=== PATIENT | male | born 1970 | race Caucasian/White ===

== ENCOUNTER 2016-12-25 19:28 | Emergency (ER) | payer OTHER ==
[2016-12-25 19:36] VITALS: TEMP 99.2
[2016-12-25] MEDS ORDERED: DIAZEPAM 5 MG/ML 2 ML SYRINGE IM ONE (20:08)
[2016-12-25] MEDS ORDERED: KETOROLAC 60 MG/2 ML VIAL IM STA (20:08)
[2016-12-25] MEDS ORDERED: PROMETHAZINE INJ 25 MG/ML 1 ML VIAL IM STA (20:09)
--- NOTE | 2016-12-25 20:16 | ED ---
General Adult HPI - General Chief complaint: Neck Pain/Injury Stated complaint: neck pain/migraine Time Seen by Provider: 12/25/16 19:35 Source: patient, RN notes reviewed Mode of arrival: ambulatory Limitations: no limitations - History of Present Illness Initial comments: This is a 46-year-old male presents emergency department stating that yesterday he woke up with some posterior neck pain. Patient states it is progressive go up into his head and rate radiates to the front of his head. Patient states there is no numbness or weakness. Patient states it hurts in the right and left side as well when he turns his head. Patient denies any fever chills. Patient denies any photophobia. Patient states he is nauseated but has not vomited. Patient denies any direct blow or trauma to that area. Patient didn' t take anything at home for this pain. - Related Data Home Medications Medication Instructions Recorded Confirmed Insulin Aspart [NovoLOG] 15 unit SQ AC-TID 09/07/15 12/25/16 Insulin Glargine [Lantus] 60 unit SQ HS 09/07/15 12/25/16 Albuterol Inhaler [Ventolin Hfa 1 - 2 puff INHALATION RT-QID PRN 12/25/16 Inhaler] Albuterol Nebulized [Ventolin 2.5 mg INHALATION RT-QID PRN 12/25/16 12/25/16 Nebulized] Atorvastatin [Lipitor] 80 mg PO HS 12/25/16 12/25/16 Lisinopril [Zestril] 10 mg PO DAILY 12/25/16 12/25/16 metFORMIN HCL [Glucophage] 2,000 mg PO HS 12/25/16 12/25/16 Previous Rx's Medication Instructions Recorded Ibuprofen [Motrin] 600 mg PO Q6HR PRN #20 tab 12/25/16 Orphenadrine [Norflex] 100 mg PO Q12H #20 tablet.er 12/25/16 Allergies Allergy/AdvReac Type Severity Reaction Status Date / Time sumatriptan [From Imitrex] Allergy Rash/Hives Verified 12/25/16 20:22 sumatriptan succinate Allergy Rash/Hives Verified 12/25/16 20:22 [From Imitrex] tramadol AdvReac Itching Verified 12/25/16 20:22 Review of Systems ROS Statement: Those systems with pertinent positive or pertinent negative responses have been documented in the HPI. ROS Other: All systems not noted in ROS Statement are negative. Past Medical History Past Medical History: Asthma, Hyperlipidemia, Hypertension History of Any Multi-Drug Resistant Organisms: None Reported Past Surgical History: Hernia Repair Past Psychological History: No Psychological Hx Reported Smoking Status: Never smoker Past Alcohol Use History: Rare Past Drug Use History: None Reported General Exam - General Exam Comments Initial Comments: GENERAL Patient is well-developed and well-nourished. Patient is in mild distress. EYES Patient's pupils are equal and round. Extraocular motion is intact ENT Patient's neck is tender both trapezius muscles and slightly in the midline. SKIN Unremarkable NEURO The patient is alert and oriented 3. Patient has normal sensation and motor all 4 extremities PYSCH Patient has normal interpersonal interactions. MUSCULOSKELETAL Patient is all 4 extremities with full range of motion Limitations: no limitations Course Vital Signs 12/25/16 19:31 Temperature 99.2 F Pulse Rate 84 Respiratory 20 Rate O2 Sat by Pulse 98 Oximetry Medical Decision Making - Medical Decision Making After patient received his medication he felt considerably better and was requesting to go home. Disposition Clinical Impression: Strain of neck muscle Disposition: HOME SELF-CARE Condition: Good Instructions: Cervical Strain (ED) Additional Instructions: Patient should take Motrin when necessary for pain. Patient should take Norflex when necessary for pain as well. Prescriptions: Ibuprofen [Motrin] 600 mg PO Q6HR PRN #20 tab PRN Reason: For pain Orphenadrine [Norflex] 100 mg PO Q12H #20 tablet.er Referrals: Hua Rahman DO [Primary Care Provider] - 1-2 days Time of Disposition: 21:08
[2016-12-25 21:20] VITALS: BP 131/81; PULSE 64; RESP 16
== END 2016-12-25 21:20 | disposition home or self-care (01) ==
LOC: EC 19:28
DX: S16.1XXA Strain of muscle, fascia and tendon at neck level, initial encounter (principal); E78.5 Hyperlipidemia, unspecified; I10 Essential (primary) hypertension; Z79.4 Long term (current) use of insulin; Z79.899 Other long term (current) drug therapy; Z88.6 Allergy status to analgesic agent; Z88.8 Allergy status to other drugs, medicaments and biological substances; X58.XXXA Exposure to other specified factors, initial encounter
CPT/HCPCS: 99283; 96372 ×3; J2550; J3360; J1885

== ENCOUNTER 2017-06-22 18:41 | Emergency (ER) | payer BC, OTHER ==
[2017-06-22 18:51] VITALS: RESP 18
[2017-06-22] MEDS ORDERED: methylPREDNISolone SOD SUCCI 125 MG/2 ML VIAL IM ONE (19:02)
[2017-06-22] MEDS ORDERED: ORPHENADRINE 30 MG/ML 2 ML VIAL IM STA (19:02)
[2017-06-22] MEDS ORDERED: DIAZEPAM 2 MG TAB PO STA (19:02)
[2017-06-22] MEDS ORDERED: HYDROcodone/APAP 10-325MG 1 EACH TAB PO ONE (19:02)
--- NOTE | 2017-06-22 19:05 | ED ---
Back Pain HPI - General Chief Complaint: Back Pain/Injury Stated Complaint: Back pain Time Seen by Provider: 06/22/17 18:52 Source: patient, RN notes reviewed, old records reviewed Limitations: no limitations - History of Present Illness Initial Comments: This patient is a 47-year-old male presents emergency department today chief complaint of lower back pain for the past 2 weeks radiating down his right leg. He reports that he has no saddle anesthesias denies any urinary retention or bowel incontinence. He reports that he has a known history of degenerative disc disease. He's been taking Motrin without any relief. He reports is worse with certain movements. Denies any back pain. Denies any dysuria or hematuria.Patient denies any recent fever, chills, shortness of breath, chest pain, back pain, abdominal pain, nausea vomiting, numbness or tingling, dysuria or hematuria, constipation or diarrhea, headaches or visual changes, or any other current symptoms - Related Data Home Medications Medication Instructions Recorded Confirmed Insulin Aspart [NovoLOG] 16 unit SQ AC-TID 09/07/15 06/22/17 Insulin Glargine [Lantus] 60 unit SQ HS 09/07/15 06/22/17 Albuterol Inhaler [Ventolin Hfa 1 - 2 puff INHALATION RT-QID PRN 12/25/16 Inhaler] Albuterol Nebulized [Ventolin 2.5 mg INHALATION RT-QID PRN 12/25/16 06/22/17 Nebulized] Atorvastatin [Lipitor] 80 mg PO HS 12/25/16 06/22/17 Lisinopril [Zestril] 10 mg PO DAILY 12/25/16 06/22/17 metFORMIN HCL [Glucophage] 2,000 mg PO BID 12/25/16 06/22/17 Previous Rx's Medication Instructions Recorded Cyclobenzaprine [Flexeril] 10 mg PO TID #20 tab 06/22/17 Dexamethasone 0.75 mg PO DAILY #12 tab 06/22/17 HYDROcodone/APAP 5-325MG [[place] 1 tab PO Q6HR PRN #20 tab 06/22/17 5-325] Allergies Allergy/AdvReac Type Severity Reaction Status Date / Time sumatriptan [From Imitrex] Allergy Rash/Hives Verified 02/09/18 19:11 sumatriptan succinate Allergy Rash/Hives Verified 06/22/17 19:11 [From Imitrex] tramadol AdvReac Itching Verified 06/22/17 19:11 Review of Systems ROS Statement: Those systems with pertinent positive or pertinent negative responses have been documented in the HPI. ROS Other: All systems not noted in ROS Statement are negative. Past Medical History Past Medical History: Asthma, Diabetes Mellitus, Hyperlipidemia, Hypertension Additional Past Medical History / Comment(s): migraine headaches, lumbar compression deformities History of Any Multi-Drug Resistant Organisms: None Reported Past Surgical History: Hernia Repair Past Psychological History: No Psychological Hx Reported Smoking Status: Never smoker Past Alcohol Use History: Rare Past Drug Use History: None Reported General Exam - General Exam Comments Initial Comments: This patient is a 47-year-old male. No acute distress. Limitations: no limitations General appearance: alert, in no apparent distress Head exam: Present: atraumatic, normocephalic, normal inspection Eye exam: Present: normal appearance, PERRL, EOMI. Absent: scleral icterus, conjunctival injection, periorbital swelling ENT exam: Present: normal exam, mucous membranes moist Neck exam: Present: normal inspection. Absent: tenderness, meningismus, lymphadenopathy Respiratory exam: Present: normal lung sounds bilaterally. Absent: respiratory distress, wheezes, rales, rhonchi, stridor Cardiovascular Exam: Present: regular rate, normal rhythm, normal heart sounds. Absent: systolic murmur, diastolic murmur, rubs, gallop, clicks GI/Abdominal exam: Present: soft, normal bowel sounds. Absent: distended, tenderness, guarding, rebound, rigid Extremities exam: Present: normal inspection, full ROM, normal capillary refill. Absent: tenderness, pedal edema, joint swelling, calf tenderness Back exam: Present: normal inspection, paraspinal tenderness (Murmur right- sided paraspinal tenderness.), vertebral tenderness (Lumbar vertebral tenderness.) Neurological exam: Present: alert, oriented X3, CN II-XII intact Psychiatric exam: Present: normal affect, normal mood Skin exam: Present: warm, dry, intact, normal color. Absent: rash Course Vital Signs 06/22/17 06/22/17 18:47 20:22 Temperature 99.0 F 98.0 F Pulse Rate 100 76 Respiratory 18 18 Rate Blood Pressure 177/100 149/90 O2 Sat by Pulse 98 96 Oximetry Medical Decision Making - Medical Decision Making This patient is a 47-year-old male presents emergency department today chief complaint of lower back pain for the past 2 weeks radiating down his right leg. He reports that he has no saddle anesthesias denies any urinary retention or bowel incontinence. He reports that he has a known history of degenerative disc disease. He's been taking Motrin without any relief. He reports is worse with certain movements. PAtient has pain with raonge of motion, patient was given [place], norflex and solumedrol. Discussed follow up with PCP and ortho marketing services specialist. Discussed heat, ice and supportive measures. His xray shows degenerative changes in L4-L5. All questions answered and return parameters discussed. - Radiology Data Radiology results: report reviewed Degenerative disc changes showing L4-L5 and L3-L4. Disposition Clinical Impression: Degenerative disc disease, Sciatica Disposition: HOME SELF-CARE Condition: Good Instructions: Sciatica (ED) Additional Instructions: Advised to follow-up with primary care physician. Take the pain medicine and temperature medicine as prescribed. Return to emergency department if any alarming signs or symptoms occur. Prescriptions: Cyclobenzaprine [Flexeril] 10 mg PO TID #20 tab Dexamethasone 0.75 mg PO DAILY #12 tab HYDROcodone/APAP 5-325MG [[place] 5-325] 1 tab PO Q6HR PRN #20 tab PRN Reason: Pain Referrals: Hua Rahman DO [Primary Care Provider] - 1-2 days Time of Disposition: 20:12
--- NOTE | 2017-06-22 19:21 | XR ---
EXAMINATION TYPE: XR lumbar spine 2 or 3V DATE OF EXAM: 06/22/2017 COMPARISON: 09/07/2015 HISTORY: Pain TECHNIQUE: Three-view lumbar spine FINDINGS: There is loss of disc at L4-5. Mild disc height loss is present L3-4. Anterior vertebral kamilla dy spurring is present L1 and L2. There 5 lumbar-type vertebral bodies. Pedicles are intact. Findings appear stable. IMPRESSION: 1. Degenerative disc change L4-5 and L3-4.
[2017-06-22 20:23] VITALS: BP 149/90; PULSE 76; TEMP 98
== END 2017-06-22 20:23 | disposition home or self-care (01) ==
LOC: EC 18:41
DX: M54.30 Sciatica, unspecified side (principal); M51.36 Other intervertebral disc degeneration, lumbar region; E11.9 Type 2 diabetes mellitus without complications; E78.5 Hyperlipidemia, unspecified; I10 Essential (primary) hypertension; Z79.4 Long term (current) use of insulin; Z79.899 Other long term (current) drug therapy
CPT/HCPCS: 72100; 99284; 96372 ×2; J2360; J2930

== ENCOUNTER 2018-01-04 20:19 | Emergency (ER) | payer BC, OTHER ==
[2018-01-04 20:23] VITALS: RESP 18
[2018-01-04] MEDS ORDERED: HYDROcodone/APAP 5-325MG 1 EACH TAB PO STA (21:36)
[2018-01-04 21:51] LABS: Basophils # (A) 0.1 k/uL (0-0.2); Basophils % (A) 1 %; Eosinophils # (A) 0.2 k/uL (0-0.7); Eosinophils % (A) 2 %; HCT 47.6 % (39.0-53.0); HGB 15.5 gm/dL (13.0-17.5); Lymphocytes # (A) 2.9 k/uL (1.0-4.8); Lymphocytes % (A) 26 %; MCH 29.3 pg (25.0-35.0); MCHC 32.6 g/dL (31.0-37.0); MCV 89.8 fL (80.0-100.0); Mean Platelet Volume 6.9; Monocytes # (A) 0.7 k/uL (0-1.0); Monocytes % (A) 6 %; Neutrophils % (A) 63 %; Platelet Count 264 k/uL (150-450); RDW 12.9 % (11.5-15.5); WBC 11.1 k/uL (3.8-10.6)
--- NOTE | 2018-01-04 22:08 | ED ---
General Adult HPI - General Chief complaint: Abdominal Pain Stated complaint: groin & abdominal pain Time Seen by Provider: 01/04/18 21:12 Source: patient Mode of arrival: ambulatory Limitations: no limitations - History of Present Illness Initial comments: Patient is a 47-year-old male who presents to the emergency department today for evaluation of right groin pain. Patient reports that on Sunday or Sunday of this week he noticed a tearing sensation in his right groin which reminded him of when he developed a hernia and his left groin. He can't recall exactly what he was doing. He denies any heavy lifting or moving. He believes he was just walking around his kitchen when this happened. He reports that since that time he has had a constant dull ache in his right groin which is worse with movement or palpation. Patient reports he's been able to eat and drink his normal diet. He's had no change in bowel or bladder habits. He had a bowel movement yesterday which was normal in color caliber and consistency. He denies any fevers chills, nausea or vomiting, chest pain, palpitations, numbness tingling or rashes in the extremities. He reports these otherwise in his usual state of health but distressed by the pain in his groin. Patient reports that in 2000 he did have a left inguinal hernia which was repaired surgically at a hospital in [place]. 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 However he has not been working this week. - Related Data Home Medications Medication Instructions Recorded Confirmed Insulin Aspart [NovoLOG] 17 unit SQ AC-TID 09/07/15 01/04/18 Insulin Glargine [Lantus] 70 unit SQ HS 09/07/15 01/04/18 Albuterol Inhaler [Ventolin Hfa 1 - 2 puff INHALATION RT-QID PRN 12/25/16 Inhaler] Albuterol Nebulized [Ventolin 2.5 mg INHALATION RT-QID PRN 12/25/16 01/04/18 Nebulized] Atorvastatin [Lipitor] 80 mg PO HS 12/25/16 01/04/18 Lisinopril [Zestril] 10 mg PO DAILY 12/25/16 01/04/18 metFORMIN HCL [Glucophage] 2,000 mg PO QAM 12/25/16 01/04/18 Naproxen 500 mg PO BID 01/04/18 01/04/18 Previous Rx's Medication Instructions Recorded HYDROcodone/APAP 5-325MG [[place] 5] 1 each PO Q4HR PRN #10 tab 01/04/18 Allergies Allergy/AdvReac Type Severity Reaction Status Date / Time sumatriptan [From Imitrex] Allergy Rash/Hives Verified 01/04/18 22:50 sumatriptan succinate Allergy Rash/Hives Verified 01/04/18 22:50 [From Imitrex] tramadol AdvReac Itching Verified 01/04/18 22:50 Review of Systems ROS Statement: Those systems with pertinent positive or pertinent negative responses have been documented in the HPI. ROS Other: All systems not noted in ROS Statement are negative. Past Medical History Past Medical History: Asthma, Diabetes Mellitus, Hyperlipidemia, Hypertension Additional Past Medical History / Comment(s): migraine headaches, lumbar compression deformities, sciatica History of Any Multi-Drug Resistant Organisms: MRSA Date of last positivie culture/infection: 08/23/17 MDRO Source:: thigh Past Surgical History: Hernia Repair Past Psychological History: No Psychological Hx Reported Smoking Status: Never smoker Past Alcohol Use History: Rare Past Drug Use History: None Reported General Exam Limitations: no limitations General appearance: alert, in no apparent distress Head exam: Present: atraumatic, normocephalic Eye exam: Present: normal appearance, PERRL ENT exam: Present: normal exam, mucous membranes moist Neck exam: Present: full ROM Respiratory exam: Absent: respiratory distress Cardiovascular Exam: Present: regular rate, normal rhythm GI/Abdominal exam: Present: soft, hernia. Absent: distended, pulsatile mass Rectal exam: Present: deferred exam: Present: normal inspection. Absent: testicular tenderness, scrotal swelling Extremities exam: Present: full ROM Back exam: Present: normal inspection Neurological exam: Present: alert, oriented X3, abnormal gait (antalgic gait) Psychiatric exam: Present: normal affect Skin exam: Present: warm, dry Course Vital Signs 01/04/18 01/04/18 01/04/18 20:21 21:59 23:09 Temperature 98.4 F 98.2 F Pulse Rate 104 H 84 86 Respiratory 18 18 18 Rate Blood Pressure 159/79 150/84 155/85 O2 Sat by Pulse 99 96 96 Oximetry 01/04/18 23:57 Temperature 98.6 F Pulse Rate 78 Respiratory 18 Rate Blood Pressure 148/77 O2 Sat by Pulse 96 Oximetry Medical Decision Making - Medical Decision Making Patient was seen and evaluated, history was obtained from the patient Physical exam reveals a small right inguinal hernia which is easily reducible, however considering the patient's significant pain I will obtain a computed tomography scan Labs were unremarkable Computed tomography scan with no evidence of incarcerated or strangulate hernia Labs are reviewed with no significant abnormalities. Is also discussed with the patient, I suspect he has a muscle strain and may have a small inguinal hernia. I will refer him to surgery for outpatient follow -up. All questions pertaining care were answered to the best my ability patient was discharged home in stable condition. - Lab Data Result diagrams: 01/04/18 21:40 01/04/18 21:40 Lab Results 01/04/18 01/04/18 Range/Units 21:40 21:40 WBC 11.1 H (3.8-10.6) k/uL RBC 5.30 (4.30-5.90) m/uL Hgb 15.5 (13.0-17.5) gm/dL Hct 47.6 (39.0-53.0) % MCV 89.8 (80.0-100.0) fL MCH 29.3 (25.0-35.0) pg MCHC 32.6 (31.0-37.0) g/dL RDW 12.9 (11.5-15.5) % Plt Count 264 (150-450) k/uL Neutrophils % 63 % Lymphocytes % 26 % Monocytes % 6 % Eosinophils % 2 % Basophils % 1 % Neutrophils # 7.0 (1.3-7.7) k/uL Lymphocytes # 2.9 (1.0-4.8) k/uL Monocytes # 0.7 (0-1.0) k/uL Eosinophils # 0.2 (0-0.7) k/uL Basophils # 0.1 (0-0.2) k/uL Sodium 134 L (137-145) mmol/L Potassium 4.2 (3.5-5.1) mmol/L Chloride 99 (98-107) mmol/L Carbon Dioxide 24 (22-30) mmol/L Anion Gap 11 mmol/L BUN 16 (9-20) mg/dL Creatinine 0.70 (0.66-1.25) mg/dL Est GFR (CKD-EPI)AfAm >90 (>60 ml/min/1.73 sqM) Est GFR (CKD-EPI)NonAf >90 (>60 ml/min/1.73 sqM) Glucose 330 H (74-99) mg/dL Calcium 9.3 (8.4-10.2) mg/dL Disposition Clinical Impression: Abdominal pain Disposition: HOME SELF-CARE Condition: Good Instructions: Abdominal Pain (ED) Prescriptions: HYDROcodone/APAP 5-325MG [[place] 5] 1 each PO Q4HR PRN #10 tab PRN Reason: Pain Is patient prescribed a controlled substance at d/c from ED?: Yes Referrals: [facility]inic [Primary Care Provider] - 1-2 days Jaylene Bernstein MD [STAFF PHYSICIAN] - 1-2 days Time of Disposition: 23:36
[2018-01-04 22:10] LABS: Anion Gap 11 mmol/L; Blood Urea Nitrogen 16 mg/dL (9-20); Calcium 9.3 mg/dL (8.4-10.2); Carbon Dioxide 24 mmol/L (22-30); Chloride 99 mmol/L (98-107); Glucose 330 mg/dL (74-99); Potassium 4.2 mmol/L (3.5-5.1); Sodium 134 mmol/L (137-145)
--- NOTE | 2018-01-04 23:07 | CT ---
EXAMINATION TYPE: CT abdomen pelvis w con DATE OF EXAM: 01/04/2018 COMPARISON: 07/18/2013 HISTORY: Right groin pain, abd pain CT DLP: 1333.50 mGycm Automated exposure control for dose reduction was used. TECHNIQUE: Helical acquisition of images was performed from the lung bases through the pelvis. CONTRAST: Performed without Oral Contrast and with IV Contrast, patient injected with 100 mL of Isovue 300. FINDINGS: Lung bases are clear. There is no pleural effusion. Heart size is normal. Liver spleen pancreas appea r normal in size and contour. There is some fatty infiltration of the liver. Bile ducts are not dilat ed. Gallbladder appears normal. There is no adrenal mass. There is 4 cm cortical cyst on the anterior left kidney. There is 1 cm michael ical cyst posterior right kidney. There is no retroperitoneal adenopathy. Appendix appears normal. Th ere is no intestinal wall thickening. There are no dilated loops. There is no ascites. There is no si gn of free air. Bladder distends smoothly. Lumbar spine is intact. IMPRESSION: THERE IS FATTY INFILTRATION OF THE LIVER. NORMAL APPENDIX. RENAL CORTICAL CYSTS. NO SIGN OF ACUTE ABD OMEN AND PELVIS. There is overall no adverse significant change compared to old exam.
[2018-01-04] MEDS ORDERED: KETOROLAC 30 MG/ML 1 ML VIAL IVP STA (23:31)
[2018-01-04 23:58] VITALS: BP 148/77; PULSE 78; TEMP 98.6
== END 2018-01-05 00:22 | disposition home or self-care (01) ==
LOC: SUPCPDRO 20:19 → EC 20:19
DX: R10.31 Right lower quadrant pain (principal); J45.909 Unspecified asthma, uncomplicated; E11.9 Type 2 diabetes mellitus without complications; E78.5 Hyperlipidemia, unspecified; I10 Essential (primary) hypertension; Z86.14 Personal history of Methicillin resistant Staphylococcus aureus infection; Z79.4 Long term (current) use of insulin; Z79.1 Long term (current) use of non-steroidal anti-inflammatories (NSAID); Z79.899 Other long term (current) drug therapy; Z88.5 Allergy status to narcotic agent; Z88.8 Allergy status to other drugs, medicaments and biological substances
CPT/HCPCS: 36415; 80048; 85025; 74177; 99284; 96374; J1885; Q9967

== ENCOUNTER → 2018-05-09 | Outpatient (CLI) | payer BC ==
[2018-05-09 12:12] LABS: HCT 47.8 % (39.0-53.0); HGB 15.8 gm/dL (13.0-17.5); MCH 29.9 pg (25.0-35.0); MCHC 33.1 g/dL (31.0-37.0); MCV 90.6 fL (80.0-100.0); Mean Platelet Volume 8.2; Platelet Count 225 k/uL (150-450); RBC 5.28 m/uL (4.30-5.90); RDW 12.8 % (11.5-15.5); WBC 10.5 k/uL (3.8-10.6)
== END | disposition home or self-care (01) ==
LOC: LABPAT 10:55
PROVIDERS: ATTEND Anesthesiology
DX: Z01.812 Encounter for preprocedural laboratory examination (principal); K40.90 Unilateral inguinal hernia, without obstruction or gangrene, not specified as recurrent
CPT/HCPCS: 36415; 85027

== ENCOUNTER → 2018-05-16 | Day surgery (SDC) | payer BC ==
[2018-05-09 08:41] VITALS: BMI 32.5
[~2018-05-16] MED LIST: ACETAMINOPHEN IV (For NPO) 1,000 MG in EMPTY BAG 1 BAG IVPB STA; BUPIVACAIN-EPI 0.25%-1:200,000 30 ML VIAL SQ ONE; DEXAMETHASONE SOD PHOSPHATE 10 MG/ML 1 ML VIAL IV ONE; GLYCOPYRROLATE 0.2 MG/ML 2 ML VIAL ONE; HEPARIN SODIUM,PORCINE 5,000 UNIT/ML 1 ML VIAL SQ ONE; HYDROcodone/APAP 5-325MG 1 EACH TAB PO ONE; IBUPROFEN 200 MG TAB PO ONE; INSULIN ASPART 100 UNIT/ML 1 ML 10 ML VIAL SQ ONE; KETAMINE 10 MG/ML 20 ML VIAL ONE; KETOROLAC 30 MG/ML 1 ML VIAL IVP STA; LACTATED RINGERS 1,000 ML IV SCH; MIDAZOLAM (PF) 2 MG/2 ML VIAL IV PRN; MIDAZOLAM 2 MG/2 ML VIAL ONE; NEOSTIGMINE 1 MG/ML 10 ML VIAL ONE; ONDANSETRON 4 MG/2 ML VIAL IVP ONE; PHENYLEPHRINE-0.9% NACL SYG 1 MG/10 ML SYRINGE ONE; PROPOFOL 10 MG/ML 20 ML VIAL IV ONE; ROCURONIUM BROMIDE 10 MG/ML 10 ML VIAL IV ONE; ROPIVACAINE 5 MG/ML 30 ML VIAL ONE; SUCCINYLCHOLINE CHLORIDE 100 MG/5 ML SYR IV ONE; VANCOMYCIN 1,500 MG in SODIUM CHLORIDE 0.9% 250 ML IVPB ONE; ceFAZolin IN SWFI 2 GM/20 ML SYRINGE IVP ONE; ePHEDrine SULFATE/0.9% NACL/PF 50 MG/5 ML SYRINGE IV ONE; fentaNYL (PF) 50 MCG/ML 2 ML AMP IV PRN; fentaNYL (PF) 50 MCG/ML 2 ML AMP ONE
[2018-05-16 10:31] VITALS: RESP 16
[2018-05-16] MEDS: LIDOCAINE 1% 20 ML VIAL (10MG/ML) FOR IV START INTRADERMA PRN ×2 (10:47→10:48)
[2018-05-16 10:52] LABS: Glucose,Whole Blood 252 mg/dL (75-99)
--- NOTE | 2018-05-16 11:50 | P.GSHP ---
History of Present Illness H&P Date: 05/16/18 CHIEF COMPLAINT: Inguinal hernia, right. HISTORY OF PRESENT ILLNESS: The patient is a 48-year-old male who presents with a history of swelling and pain along the right groin. He's noted increased swelling including pain of the area. Now he presents for repair of his inguinal hernia. PAST MEDICAL HISTORY: Please see list. PAST SURGICAL HISTORY: Please see list. MEDICATIONS: Please see list. ALLERGIES: Please see list. SOCIAL HISTORY: No illicit drug use FAMILY HISTORY: No reports of Crohn disease or ulcerative colitis. REVIEW OF ORGAN SYSTEMS: CONSTITUTIONAL: No reports of fevers or chills. No reports of weight loss despite prior attempts. GI: Denies any blood in stools or constipation. PHYSICAL EXAM: VITAL SIGNS: Stable GENERAL: Well-developed pleasant male in no acute distress. HEENT: No scleral icterus. Extraocular movements grossly intact. Moist buccal mucosa. NECK: Supple without lymphadenopathy. CHEST: Unlabored respirations. Equal bilateral excursions. CARDIOVASCULAR: Regular rate and rhythm. Distal 2+ pulses. ABDOMEN: Soft, nondistended. No peritoneal signs. Palpable defect of the right groin. MUSCULOSKELETAL: No clubbing, cyanosis, or edema. ASSESSMENT: 1. Inguinal hernia, right PLAN: 1. Recommend proceeding with a robotic inguinal repair with mesh with possible bilateral approach. 2. Benefits and risks of surgical intervention was discussed including possibility of open technique. 3. DVT prophylaxis. 4. Antibiotic prophylaxis. Past Medical History Past Medical History: Asthma, Diabetes Mellitus, Hyperlipidemia, Hypertension, Neurologic Disorder Additional Past Medical History / Comment(s): migraine headaches, lumbar compression deformities, sciatica History of Any Multi-Drug Resistant Organisms: MRSA Date of last positivie culture/infection: 08/23/17 MDRO Source:: thigh Past Surgical History: Heart Catheterization, Hernia Repair Past Anesthesia/Blood Transfusion Reactions: No Reported Reaction Smoking Status: Never smoker - Past Family History Father Family Medical History: Deep Vein Thrombosis (DVT) Medications and Allergies Home Medications Medication Instructions Recorded Confirmed Type Insulin Aspart [NovoLOG] 17 unit SQ AC-TID 09/07/15 05/16/18 History Insulin Glargine [Lantus] 70 unit SQ HS 09/07/15 05/16/18 History Albuterol Inhaler [Ventolin Hfa 1 - 2 puff INHALATION RT-QID PRN 12/25/16 History Inhaler] Albuterol Nebulized [Ventolin 2.5 mg INHALATION RT-QID PRN 12/25/16 05/16/18 History Nebulized] Atorvastatin [Lipitor] 80 mg PO HS 12/25/16 05/16/18 History Lisinopril [Zestril] 10 mg PO DAILY 12/25/16 05/16/18 History metFORMIN HCL [Glucophage] 2,000 mg PO QAM 12/25/16 05/16/18 History HYDROcodone/APAP 5-325MG [[place] 5] 1 each PO Q4HR PRN #10 tab 01/04/18 05/16/18 Rx Naproxen 500 mg PO BID 01/04/18 05/16/18 History Allergies Allergy/AdvReac Type Severity Reaction Status Date / Time sumatriptan [From Imitrex] Allergy Rash/Hives Verified 05/16/18 11:11 sumatriptan succinate Allergy Rash/Hives Verified 05/16/18 11:11 [From Imitrex] tramadol AdvReac Itching Verified 05/16/18 11:11 Surgical - Exam Vital Signs Temp Pulse Resp BP Pulse Ox 97.0 F L 72 16 155/81 95 05/16/18 10:30 05/16/18 10:30 05/16/18 10:30 05/16/18 10:30 05/16/18 10:30 Results - Labs Abnormal Lab Results - Last 24 Hours (Table) 05/16/18 Range/Units 10:38 POC Glucose (mg/dL) 252 H (75-99) mg/dL
[2018-05-16 15:30] VITALS: TEMP 97
[2018-05-16 15:46] LABS: Glucose,Whole Blood 344 mg/dL (75-99)
[2018-05-16] MEDS: HYDROmorphone 1 MG/ML 1 ML SYRINGE IVP ONE ×2 (15:51→16:10)
[2018-05-16 16:54] VITALS: BP 102/65
[2018-05-16 17:31] VITALS: PULSE 90
[2018-05-16 17:39] LABS: Glucose,Whole Blood 292 mg/dL (75-99)
--- NOTE | 2018-05-16 18:21 | P.OP ---
Date of Procedure: 05/16/18 Preoperative Diagnosis: Right inguinal hernia, right groin pain, right lower quadrant abdominal pain, previous history of left inguinal hernia repair Postoperative Diagnosis: Right lower quadrant pain, peritoneal adhesions right lower abdomen Procedure(s) Performed: Robotic lysis adhesions Anesthesia: GETA, local Surgeon: Jaylene Bernstein Estimated Blood Loss (ml): 5 Pathology: none sent Condition: stable Disposition: same day Operative Findings: The left side without recurrent hernia No hernias identified along the right groin Adhesions involving left lower quadrant and right lower quadrant consistent with location of pain Abdominal wall block for chronic pain and chronic lower back pain Appendix unremarkable Plan - Discharge Summary New Discharge Prescriptions: New HYDROcodone/APAP 5-325MG [[place] 5-325] 1 tab PO Q4HR PRN 3 Days #18 tab PRN Reason: Pain Ibuprofen [Motrin] 600 mg PO Q8HR PRN #30 tab PRN Reason: Pain No Action Insulin Glargine [Lantus] 70 unit SQ HS Insulin Aspart [NovoLOG] 17 unit SQ AC-TID Albuterol Inhaler [Ventolin Hfa Inhaler] 1 - 2 puff INHALATION RT-QID PRN PRN Reason: Shortness Of Breath metFORMIN HCL [Glucophage] 2,000 mg PO QAM Atorvastatin [Lipitor] 80 mg PO HS Albuterol Nebulized [Ventolin Nebulized] 2.5 mg INHALATION RT-QID PRN PRN Reason: Shortness Of Breath Lisinopril [Zestril] 10 mg PO DAILY Naproxen 500 mg PO BID HYDROcodone/APAP 5-325MG [[place] 5] 1 each PO Q4HR PRN #10 tab PRN Reason: Pain Discharge Medication List Insulin Aspart [NovoLOG] 17 unit SQ AC-TID 09/07/15 [History] Insulin Glargine [Lantus] 70 unit SQ HS 09/07/15 [History] Albuterol Inhaler [Ventolin Hfa Inhaler] 1 - 2 puff INHALATION RT-QID PRN [History] Albuterol Nebulized [Ventolin Nebulized] 2.5 mg INHALATION RT-QID PRN 12/25/16 [ History] Atorvastatin [Lipitor] 80 mg PO HS 12/25/16 [History] Lisinopril [Zestril] 10 mg PO DAILY 12/25/16 [History] metFORMIN HCL [Glucophage] 2,000 mg PO QAM 12/25/16 [History] HYDROcodone/APAP 5-325MG [[place] 5] 1 each PO Q4HR PRN #10 tab 01/04/18 [Rx] Naproxen 500 mg PO BID 01/04/18 [History] HYDROcodone/APAP 5-325MG [[place] 5-325] 1 tab PO Q4HR PRN 3 Days #18 tab [Rx] Ibuprofen [Motrin] 600 mg PO Q8HR PRN #30 tab 05/16/18 [Rx] Follow up Appointment(s)/Referral(s): Jaylene Bernstein MD [STAFF PHYSICIAN] - 05/21/18 Patient Instructions/Handouts: *Surgery [facility] - (Anesthesia) Discharge Instructions Outpatient Surgery, Lysis of Abdominal Adhesions (DC) Activity/Diet/Wound Care/Special Instructions: call office for an appointment time. Discharge Disposition: HOME SELF-CARE
== END | disposition home or self-care (01) ==
LOC: OR 10:06
PROVIDERS: ATTEND Surgery Plastic and Reconstructive Surgery
DX: K66.0 Peritoneal adhesions (postprocedural) (postinfection) (principal); G89.29 Other chronic pain; M54.5 Low back pain; E11.9 Type 2 diabetes mellitus without complications; I10 Essential (primary) hypertension; E78.5 Hyperlipidemia, unspecified; Z82.49 Family history of ischemic heart disease and other diseases of the circulatory system; Z88.5 Allergy status to narcotic agent; Z88.8 Allergy status to other drugs, medicaments and biological substances; Z79.4 Long term (current) use of insulin; Z79.899 Other long term (current) drug therapy
CPT/HCPCS: 64488; 49329; J2250 ×2; J3370; J1644; J1100; J2710; J2405; J3010; J1170; J2795; J0131; J2370; J0330; J2704; J0690

== ENCOUNTER 2018-07-01 13:54 | Emergency (ER) | payer BC, OTHER ==
[2018-07-01] MEDS ORDERED: SODIUM CHLORIDE 0.9% 1,000 ML IV STA (15:00)
[2018-07-01] MEDS ORDERED: ONDANSETRON 4 MG/2 ML VIAL IVP STA (15:00)
--- NOTE | 2018-07-01 15:19 | XR ---
EXAMINATION TYPE: XR KUB DATE OF EXAM: 07/01/2018 COMPARISON: 01/04/2018 HISTORY: Pain TECHNIQUE: One view abdominal series FINDINGS: The osseous structures are intact. The bowel gas pattern is nonspecific. Lung bases are clear. Hype rtrophic change of the acetabulum can be associated with femoral acetabular impingement. Hypertrophic changes of the vertebral column. Retained fecal debris throughout the colon. IMPRESSION: 1. Nonspecific abdomen.
[2018-07-01 15:35] LABS: Basophils # (A) 0.1 k/uL (0-0.2); Basophils % (A) 1 %; Eosinophils # (A) 0.2 k/uL (0-0.7); Eosinophils % (A) 2 %; HCT 45.8 % (39.0-53.0); HGB 15.6 gm/dL (13.0-17.5); Lymphocytes # (A) 2.6 k/uL (1.0-4.8); Lymphocytes % (A) 26 %; MCH 30.6 pg (25.0-35.0); MCHC 34.1 g/dL (31.0-37.0); MCV 89.7 fL (80.0-100.0); Mean Platelet Volume 6.5; Monocytes # (A) 0.7 k/uL (0-1.0); Monocytes % (A) 7 %; Neutrophils # (A) 6.5 k/uL (1.3-7.7); Neutrophils % (A) 63 %; Platelet Count 264 k/uL (150-450); RDW 12.7 % (11.5-15.5); WBC 10.3 k/uL (3.8-10.6)
[2018-07-01 15:44] LABS: ALT 41 U/L (21-72); AST 26 U/L (17-59); Albumin 3.9 g/dL (3.5-5.0); Alkaline Phosphatase 107 U/L (38-126); Anion Gap 10 mmol/L; Blood Urea Nitrogen 21 mg/dL (9-20); Calcium 9.4 mg/dL (8.4-10.2); Carbon Dioxide 23 mmol/L (22-30); Chloride 105 mmol/L (98-107); Glucose 240 mg/dL (74-99); Potassium 4.4 mmol/L (3.5-5.1); Sodium 138 mmol/L (137-145); Total Bilirubin 0.8 mg/dL (0.2-1.3); Total Protein 6.9 g/dL (6.3-8.2)
--- NOTE | 2018-07-01 16:56 | ED ---
General Adult HPI - General Chief complaint: Nausea/Vomiting/Diarrhea Stated complaint: Vomiting Time Seen by Provider: 07/01/18 14:32 Source: patient, RN notes reviewed, old records reviewed Mode of arrival: ambulatory Limitations: no limitations - History of Present Illness Initial comments: 48-year-old male patient past medical history of type 2 diabetes, hypertension, hyperlipidemia presents ED with 2 days of nausea and vomiting. Patient states that last 2 days he has had nausea and shortly after eating has vomited. Patient denies all other complaints. Patient denies abdominal pain, diarrhea, chest pain, shortness of breath. Patient not take anything for these symptoms. Patient has not been previously evaluated for this problem. Systemic: Pt denies fatigue, myalgia, fever/chills, rash. Pt denies weakness, night sweats, weight loss. Neuro: Pt denies headache, visual disturbances, syncope or pre-syncope. HEENT: Pt denies ocular discharge or irritation, otalgia, rhinorrhea, pharyngitis or notable lymphadenopathy. Cardiopulmonary: Pt denies chest pain, SOB, heart palpitations, dyspnea on exertion. Abdominal/GI: Pt denies abdominal pain. : Pt denies dysuria, burning w/ urination, frequency/urgency. Denies new onset urinary or bowel incontinence. MSK: Pt denies myalgia, loss of strength or function in extremities. Neuro: Pt denies new onset weakness, paresthesias. - Related Data Home Medications Medication Instructions Recorded Confirmed INSULIN ASPART (NovoLOG) [NovoLOG] 18 unit SQ AC-TID 09/07/15 07/01/18 Insulin Glargine [Lantus] 70 unit SQ HS 09/07/15 07/01/18 Albuterol Inhaler [Ventolin Hfa 2 puff INHALATION RT-QID PRN 12/25/16 07/01/18 Inhaler] Albuterol Nebulized [Ventolin 2.5 mg INHALATION RT-QID PRN 12/25/16 07/01/18 Nebulized] Lisinopril [Zestril] 10 mg PO DAILY 12/25/16 07/01/18 metFORMIN HCL [Glucophage] 2,000 mg PO QAM 12/25/16 07/01/18 Rosuvastatin Calcium [Crestor] 40 mg PO HS 07/01/18 07/01/18 Previous Rx's Medication Instructions Recorded Ondansetron Odt [Zofran ODT] 4 mg PO Q8HR PRN #20 tab 07/01/18 Allergies Allergy/AdvReac Type Severity Reaction Status Date / Time sumatriptan [From Imitrex] Allergy Rash/Hives Verified 07/01/18 16:16 sumatriptan succinate Allergy Rash/Hives Verified 07/01/18 16:16 [From Imitrex] tramadol AdvReac Itching Verified 07/01/18 16:16 Review of Systems ROS Statement: Those systems with pertinent positive or pertinent negative responses have been documented in the HPI. ROS Other: All systems not noted in ROS Statement are negative. Past Medical History Past Medical History: Asthma, Diabetes Mellitus, Hyperlipidemia, Hypertension, Neurologic Disorder Additional Past Medical History / Comment(s): migraine headaches, lumbar compression deformities, sciatica History of Any Multi-Drug Resistant Organisms: MRSA Date of last positivie culture/infection: 08/23/17 MDRO Source:: thigh Past Surgical History: Heart Catheterization, Hernia Repair Past Anesthesia/Blood Transfusion Reactions: No Reported Reaction Past Psychological History: No Psychological Hx Reported Smoking Status: Never smoker - Past Family History Father Family Medical History: Deep Vein Thrombosis (DVT) General Exam - General Exam Comments Initial Comments: Constitutional: NAD, AOX3, Pt has pleasant affect. HEENT: NC/AT, trachea midline, neck supple, no lymphadenopathy. Posterior pharynx non erythematous, without exudates. External ears appear normal, without discharge. Mucous membranes moist. Eyes PERRLA, EOM intact. There is no scleral icterus. No pallor noted. Cardiopulmonary: RRR, no murmurs, rubs or gallops, no JVD noted. Lungs CTAB in anterior and posterior andre. No peripheral edema. Abdominal exam: Abdomen soft and non-distended. Abdomen non-tender to palpation in all 4 quadrants. Bowel sounds active in LLQ. No hepatosplenomegaly. No ecchymosis Neuro: CN II-XII grossly intact. No nuchal rigidity. MSK: No posterior calf tenderness bilaterally, homans sign negative bilaterally. Posterior tibialis and radial pulse +2 bilaterally. Sensation intact in upper and lower extremities. Full active ROM in upper and lower extremities, 5/5 stregnth. Limitations: no limitations Course Vital Signs 02/18/19 02/18/19 14:00 16:56 Temperature 98 F 97.2 F L Pulse Rate 97 69 Respiratory 18 16 Rate Blood Pressure 156/80 131/81 O2 Sat by Pulse 97 99 Oximetry Medical Decision Making - Medical Decision Making 48-year-old male patient past medical history of type 2 diabetes, hypertension, hyperlipidemia presents ED with 2 days of nausea and vomiting. Patient states that last 2 days he has had nausea and shortly after eating has vomited. Patient denies all other complaints. Patient denies abdominal pain, diarrhea, chest pain, shortness of breath. Patient not take anything for these symptoms. Patient has not been previously evaluated for this problem. Patient will signs stable afebrile. Physical exam did not display acute pathology, abdomen soft and nondistended and nontender palpation. Laboratory investigations revealed noncompressive CBC. CMP revealed hyperglycemia. KUB displayed a nonspecific abdomen. Patient improved with Zofran, IV fluids. Patient to monitor blood sugar at home, will take medications. Patient discharged with Zofran. Patient to follow up with primary care physician one to 2 days for continued evaluation. Patient to return to ED if signs or symptoms worsen anyway, strict return precautions, patient verbalizes understanding. Case discussed in depth with Dr. Ruiz. - Lab Data Result diagrams: 07/01/18 15:17 07/01/18 15:17 Lab Results 07/01/18 07/01/18 Range/Units 15:17 15:17 WBC 10.3 (3.8-10.6) k/uL RBC 5.10 (4.30-5.90) m/uL Hgb 15.6 (13.0-17.5) gm/dL Hct 45.8 (39.0-53.0) % MCV 89.7 (80.0-100.0) fL MCH 30.6 (25.0-35.0) pg MCHC 34.1 (31.0-37.0) g/dL RDW 12.7 (11.5-15.5) % Plt Count 264 (150-450) k/uL Neutrophils % 63 % Lymphocytes % 26 % Monocytes % 7 % Eosinophils % 2 % Basophils % 1 % Neutrophils # 6.5 (1.3-7.7) k/uL Lymphocytes # 2.6 (1.0-4.8) k/uL Monocytes # 0.7 (0-1.0) k/uL Eosinophils # 0.2 (0-0.7) k/uL Basophils # 0.1 (0-0.2) k/uL Sodium 138 (137-145) mmol/L Potassium 4.4 (3.5-5.1) mmol/L Chloride 105 (98-107) mmol/L Carbon Dioxide 23 (22-30) mmol/L Anion Gap 10 mmol/L BUN 21 H (9-20) mg/dL Creatinine 0.63 L (0.66-1.25) mg/dL Est GFR (CKD-EPI)AfAm >90 (>60 ml/min/1.73 sqM) Est GFR (CKD-EPI)NonAf >90 (>60 ml/min/1.73 sqM) Glucose 240 H (74-99) mg/dL Calcium 9.4 (8.4-10.2) mg/dL Total Bilirubin 0.8 (0.2-1.3) mg/dL AST 26 (17-59) U/L ALT 41 (21-72) U/L Alkaline Phosphatase 107 (38-126) U/L Total Protein 6.9 (6.3-8.2) g/dL Albumin 3.9 (3.5-5.0) g/dL Disposition Clinical Impression: Nausea and vomiting Disposition: HOME SELF-CARE Condition: Stable Instructions (If sedation given, give patient instructions): Acute Nausea and Vomiting (ED) Additional Instructions: Patient to adhere to previously discussed treatment plan and will take medication(s) as directed. Patient to follow up with PCP in 1-2 days. Patient to return to ED if symptoms do not improve. Prescriptions: Ondansetron Odt [Zofran ODT] 4 mg PO Q8HR PRN #20 tab PRN Reason: Nausea Is patient prescribed a controlled substance at d/c from ED?: No Referrals: [facility],Clinic [Primary Care Provider] - 1-2 days Time of Disposition: 16:55
[2018-07-01 16:57] VITALS: BP 131/81; PULSE 69; RESP 16; TEMP 97.2
== END 2018-07-01 17:04 | disposition home or self-care (01) ==
LOC: EC 13:54
DX: R11.2 Nausea with vomiting, unspecified (principal); E11.65 Type 2 diabetes mellitus with hyperglycemia; J45.909 Unspecified asthma, uncomplicated; E78.5 Hyperlipidemia, unspecified; I10 Essential (primary) hypertension; Z86.14 Personal history of Methicillin resistant Staphylococcus aureus infection; Z79.4 Long term (current) use of insulin; Z79.899 Other long term (current) drug therapy; Z88.5 Allergy status to narcotic agent; Z88.8 Allergy status to other drugs, medicaments and biological substances; Z95.818 Presence of other cardiac implants and grafts
CPT/HCPCS: 36415; 80053; 85025; 74018; 99284; 96374; 96361 ×2; J2405

== ENCOUNTER 2018-07-05 15:40 | Emergency (ER) | payer BC, OTHER ==
[2018-07-05] MEDS ORDERED: KETOROLAC 60 MG/2 ML VIAL IM STA (16:50)
--- NOTE | 2018-07-05 16:50 | ED ---
General Adult HPI - General Chief complaint: Extremity Problem,Nontraumatic Stated complaint: Lt arm and ear pain Source: family, RN notes reviewed Mode of arrival: ambulatory Limitations: no limitations - History of Present Illness Initial comments: Patient is a 48-year-old male who presents to the emergency department with his fianc with complaint of left shoulder and left ear pain since today. He states that he had earplugs in at work and when he took the earplugs out he had left ear pain. He states that there was no injury or trauma to the shoulder and that it started sometime after getting out of bed. He has not taken anything today for pain relief. Patient denies any recent fever, chills, shortness of breath, chest pain, back pain, abdominal pain, nausea or vomiting, numbness or tingling, headaches or visual changes, or any other complaints. - Related Data Home Medications Medication Instructions Recorded Confirmed INSULIN ASPART (NovoLOG) [NovoLOG] 18 unit SQ AC-TID 09/07/15 07/01/18 Insulin Glargine [Lantus] 70 unit SQ HS 09/07/15 07/01/18 Albuterol Inhaler [Ventolin Hfa 2 puff INHALATION RT-QID PRN 12/25/16 07/01/18 Inhaler] Albuterol Nebulized [Ventolin 2.5 mg INHALATION RT-QID PRN 12/25/16 07/01/18 Nebulized] Lisinopril [Zestril] 10 mg PO DAILY 12/25/16 07/01/18 metFORMIN HCL [Glucophage] 2,000 mg PO QAM 12/25/16 07/01/18 Rosuvastatin Calcium [Crestor] 40 mg PO HS 07/01/18 07/01/18 Previous Rx's Medication Instructions Recorded Ondansetron Odt [Zofran ODT] 4 mg PO Q8HR PRN #20 tab 07/01/18 Ibuprofen [Motrin] 600 mg PO Q6HR PRN #28 day 07/05/18 [id number]-Vm Otic 4 drops LEFT EAR QID 10 Days 07/05/18 [Cortisporin Otic Soln] Allergies Allergy/AdvReac Type Severity Reaction Status Date / Time sumatriptan [From Imitrex] Allergy Rash/Hives Verified 07/05/18 15:54 sumatriptan succinate Allergy Rash/Hives Verified 07/05/18 15:54 [From Imitrex] tramadol AdvReac Itching Verified 07/05/18 15:54 Review of Systems ROS Statement: Those systems with pertinent positive or pertinent negative responses have been documented in the HPI. ROS Other: All systems not noted in ROS Statement are negative. Past Medical History Past Medical History: Asthma, Diabetes Mellitus, Hyperlipidemia, Hypertension, Neurologic Disorder Additional Past Medical History / Comment(s): migraine headaches, lumbar compression deformities, sciatica History of Any Multi-Drug Resistant Organisms: MRSA Date of last positivie culture/infection: 08/23/17 MDRO Source:: thigh Past Surgical History: Heart Catheterization, Hernia Repair Past Anesthesia/Blood Transfusion Reactions: No Reported Reaction Past Psychological History: No Psychological Hx Reported Smoking Status: Never smoker Past Alcohol Use History: None Reported Past Drug Use History: None Reported - Past Family History Father Family Medical History: Deep Vein Thrombosis (DVT) General Exam Limitations: no limitations General appearance: alert, in no apparent distress Head exam: Present: atraumatic, normocephalic Eye exam: Present: normal appearance ENT exam: Present: normal oropharynx, other (Left ear canal erythematous; right is normal.) Respiratory exam: Present: normal lung sounds bilaterally. Absent: wheezes, rales, rhonchi Cardiovascular Exam: Present: regular rate, normal rhythm Extremities exam: Present: normal inspection, full ROM, tenderness (Left shoulder.), normal capillary refill (Upper extremities.), other (Radial pulses palpable and strong bilaterally.) Neurological exam: Present: alert, oriented X3 Course Vital Signs 07/05/18 15:52 Temperature 97.8 F Pulse Rate 83 Respiratory 20 Rate Blood Pressure 147/88 O2 Sat by Pulse 99 Oximetry Medical Decision Making - Medical Decision Making Given Toradol here for pain. X-ray of the left shoulder is negative. Will prescribe Cortisporin Otic and ibuprofen. Will refer to orthopedics. Case discussed in detail with attending physician Dr. Smith. Disposition Clinical Impression: Otitis externa, Shoulder pain Disposition: HOME SELF-CARE Condition: Good Instructions (If sedation given, give patient instructions): Otitis Externa (ED ), Shoulder Pain (ED) Additional Instructions: Follow-up with your PCP and orthopedics in 1-2 days. Please use antibiotic drops as prescribed. Take ibuprofen as needed for pain. Return to the emergency department if your symptoms worsen or other concerns. Prescriptions: Ibuprofen [Motrin] 600 mg PO Q6HR PRN #28 day PRN Reason: Pain [id number] Otic [Cortisporin Otic Soln] 4 drops LEFT EAR QID 10 Days Is patient prescribed a controlled substance at d/c from ED?: No Referrals: [facility],Clinic [Primary Care Provider] - 1-2 days Gerard Steward DO [Medical Doctor] - 1-2 days Time of Disposition: 18:41
--- NOTE | 2018-07-05 17:46 | XR ---
Left shoulder 3 views. History pain. Comparison none. FINDINGS: I see no fracture nor dislocation. Joint spaces are normal. IMPRESSION: Negative left shoulder exam.
[2018-07-05] MEDS ORDERED: CYCLOBENZAPRINE 10 MG TAB PO STA (18:06)
[2018-07-05 18:46] VITALS: BP 132/65; PULSE 72; RESP 18; TEMP 98.6
== END 2018-07-05 18:30 | disposition home or self-care (01) ==
LOC: EC 15:40
DX: M25.512 Pain in left shoulder (principal); H60.92 Unspecified otitis externa, left ear; E11.9 Type 2 diabetes mellitus without complications; J45.909 Unspecified asthma, uncomplicated; I10 Essential (primary) hypertension; E78.5 Hyperlipidemia, unspecified; Z79.4 Long term (current) use of insulin; Z79.899 Other long term (current) drug therapy; Z88.5 Allergy status to narcotic agent; Z88.8 Allergy status to other drugs, medicaments and biological substances; Z95.5 Presence of coronary angioplasty implant and graft
CPT/HCPCS: 73030; 99283; 96372; J1885

== ENCOUNTER 2018-09-24 22:35 | Emergency (ER) | payer OTHER ==
[2018-09-24] MEDS ORDERED: ASPIRIN 81 MG PO ONE (23:15)
[2018-09-24] MEDS ORDERED: ACETAMINOPHEN TAB 325 MG TAB PO ONE (23:15)
[2018-09-24] MEDS ORDERED: HEPARIN SODIUM,PORCINE 5,000 UNIT/ML 1 ML VIAL IV PRN (23:30)
[2018-09-24] MEDS ORDERED: HEPARIN SOD,PORK IN 0.45% NACL 25,000 UNIT in 0.45% NACL 1 250ML.BAG IV SCH (23:30)
[2018-09-25] MEDS ORDERED: ONDANSETRON 4 MG/2 ML VIAL IVP PRN (03:35)
[2018-09-25] MEDS ORDERED: MORPHINE SULFATE 2 MG/ML SYRINGE IVP PRN (03:35)
[2018-09-25] MEDS ORDERED: NITROGLYCERIN SL TABS 0.4 MG TAB SUBLINGUAL PRN (04:54)
[2018-09-25 06:11] LABS: Basophils # (A) 0.1 k/uL (0-0.2); Basophils % (A) 1 %; Eosinophils # (A) 0.1 k/uL (0-0.7); Eosinophils % (A) 1 %; HCT 43.7 % (39.0-53.0); HGB 14.5 gm/dL (13.0-17.5); Lymphocytes # (A) 2.9 k/uL (1.0-4.8); Lymphocytes % (A) 26 %; MCH 29.8 pg (25.0-35.0); MCHC 33.2 g/dL (31.0-37.0); MCV 89.8 fL (80.0-100.0); Mean Platelet Volume 7.7; Monocytes # (A) 0.7 k/uL (0-1.0); Monocytes % (A) 6 %; Neutrophils # (A) 7.1 k/uL (1.3-7.7); Neutrophils % (A) 64 %; Platelet Count 256 k/uL (150-450); RBC 4.86 m/uL (4.30-5.90); RDW 12.7 % (11.5-15.5); WBC 11.2 k/uL (3.8-10.6)
[2018-09-25 06:14] LABS: D-Dimer 0.32 mg/L FEU (<0.60); Partial Thromboplastin Time 24.4 sec (22.0-30.0); Prothrombin Time 10.3 sec (9.0-12.0)
[2018-09-25 06:15] LABS: ALT 32 U/L (21-72); AST 27 U/L (17-59); Alkaline Phosphatase 93 U/L (38-126); Anion Gap 9 mmol/L; Blood Urea Nitrogen 21 mg/dL (9-20); Calcium 9.3 mg/dL (8.4-10.2); Carbon Dioxide 23 mmol/L (22-30); Chloride 106 mmol/L (98-107); Glucose 172 mg/dL (74-99); Magnesium 1.7 mg/dL (1.6-2.3); Potassium 4.2 mmol/L (3.5-5.1); Sodium 138 mmol/L (137-145); Total Bilirubin 0.7 mg/dL (0.2-1.3); Total Protein 6.9 g/dL (6.3-8.2)
[2018-09-25 07:54] VITALS: RESP 18
[2018-09-25 08:35] LABS: Glucose,Whole Blood 189 mg/dL (75-99)
[2018-09-25] MEDS ORDERED: LISINOPRIL 10 MG TAB PO SCH (09:00)
[2018-09-25] MEDS: NITROGLYCERIN OINT 1 INCH/GM PACKET TOPICAL SCH ×2 (10:19→12:21)
--- NOTE | 2018-09-25 11:22 | P.CRDCN ---
History of Present Illness History of present illness: This is a pleasant 48-year-old male past medical history significant for hypertension, dyslipidemia, diabetes mellitus and asthma. He denies history of coronary artery disease. He saw Dr. Salter in the office March 2018 for presurgical authorization. At that time he underwent a Lexiscan stress test which was negative for reversible cardiac ischemia. We have been asked to see him in consultation secondary to chest discomfort. He presented to the emergency department last night with symptoms of chest pain. 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 He states it felt like a very heavy pressure some he was pressing on his chest and compressing it through to his back. There is no radiation to the arm, neck or jaw. He felt mildly short of breath associated with these symptoms. There was no nausea, vomiting, diaphoresis or palpitations. Upon arrival to the emergency department he was having ongoing chest discomfort and nitroglycerin paste was applied. He continues to feel mild heavy pressure in the chest that is a 3 out of 10. The pain is not reproducible on palpation or with deep inspiration. EKG reveals sinus mechanism, left axis deviation and nonspecific T-wave abnormalities inferiorly. Laboratory data reviewed, WBC 11.2, hemoglobin 14.5, platelets 256, d-dimer 0.32, sodium 138, potassium 4.2, creatinine 0.72, magnesium 1.7, cardiac enzymes negative 2, NT proBNP 41. Current cardiac medications include lisinopril 10 mg daily, rosuvastatin 40 mg daily. At the time of my exam: CONSTITUTIONAL: Denies fever. Denies chills. EYES: Denies blurred vision. Denies vision changes. Denies eye pain. EARS, NOSE, MOUTH & THROAT: Denies headache. Denies sore throat. Denies ear pain. CARDIOVASCULAR: Complains of chest pain. Denies shortness of breath. Denies orthopnea. Denies PND. Denies palpitations. RESPIRATORY: Denies cough. GASTROINTESTINAL: Denies abdominal pain. Denies diarrhea. Denies constipation. Denies nausea. Denies vomiting. MUSCULOSKELETAL: Denies myalgias. INTEGUMENTARY: Denies pruitis. Denies rash. NEUROLOGIC: Denies numbness. Denies tingling. Denies weakness. PSYCHIATRIC: Denies anxiety. Denies depression. ENDOCRINE: Denies fatigue. Denies weight change. Denies polydipsia. Denies poly urina. GENITOURINARY: Denies burning, hematuria or urgency with micturation. HEMATOLOGIC: Denies history of anemia. Denies bleeding. Blood pressure 113/66 heart rate 68 afebrile maintaining oxygen saturation on room air GENERAL: This is a 48-year-old male in no apparent distress at the t sherwin of my examination. HEENT: Head is atraumatic, normocephalic. Pupils are equal, round. Sclerae an icteric. Conjunctivae are clear. Mucous membranes of the mouth are moist. Neck is supple. There is no jugular venous distention. No carotid bruit is heard. LUNGS: Clear to auscultation no wheezes, rales or rhonchi. No chest wall tenderness is noted on palpation or with deep breathing. HEART: Regular rate and rhythm without murmurs, rubs or gallops. S1 and S2 heard. ABDOMEN: Soft, nontender. Bowel sounds are heard. No organomegaly noted. EXTREMITIES: No evidence of peripheral edema and no calf tenderness noted. VASCULAR: Radial and dorsalis pedis pulses palpated, no evidence of clubbing. NEUROLOGIC: Patient is awake, alert and oriented x3. ASSESSMENT Chest pain, an acute coronary event has been ruled out. Atypical for angina with a normal perfuaion scan 03/2028. May be related to muskuloskeletal strain. Leukocytosis Hypertension Dyslipidemia Diabetes mellitus Asthma PLAN An acute coronary event has been ruled out. Discontinue heparin infusion. Check lipid profile. Obtain 2D echocardiogram and doppler study to assess cardiac structure and function. Perform exercise stress echocardiogram to assess for stress induced ischemia. If normal he may be discharged from a cardiac perspective and follow up with Dr. Salter. Thank you kindly for this consultation. Nurse Practitioner note has been reviewed, I agree with a documented findings and plan of care. Patient was seen and examined. Past Medical History Past Medical History: Asthma, Diabetes Mellitus, Hyperlipidemia, Hypertension, Neurologic Disorder Additional Past Medical History / Comment(s): migraine headaches, lumbar compression deformities, sciatica History of Any Multi-Drug Resistant Organisms: MRSA Date of last positivie culture/infection: 08/23/17 MDRO Source:: thigh Past Surgical History: Heart Catheterization, Hernia Repair Past Anesthesia/Blood Transfusion Reactions: No Reported Reaction Past Psychological History: No Psychological Hx Reported Smoking Status: Never smoker Past Alcohol Use History: None Reported Past Drug Use History: None Reported - Past Family History Father Family Medical History: Deep Vein Thrombosis (DVT) Medications and Allergies Home Medications Medication Instructions Recorded Confirmed Type INSULIN ASPART (NovoLOG) [NovoLOG] 20 unit SQ AC-TID 09/07/15 09/25/18 History Insulin Glargine [Lantus] 70 unit SQ HS 09/07/15 09/25/18 History Lisinopril [Zestril] 10 mg PO DAILY 12/25/16 09/25/18 History metFORMIN HCL [Glucophage] 2,000 mg PO QAM 12/25/16 09/25/18 History Rosuvastatin Calcium [Crestor] 40 mg PO HS 07/01/18 09/25/18 History Naproxen Sodium [Aleve] 220 mg PO DAILY PRN 09/25/18 09/25/18 History Allergies Allergy/AdvReac Type Severity Reaction Status Date / Time sumatriptan [From Imitrex] Allergy Rash/Hives Verified 09/25/18 07:03 sumatriptan succinate Allergy Rash/Hives Verified 09/25/18 07:03 [From Imitrex] tramadol AdvReac Itching Verified 09/25/18 07:03 Physical Exam Vitals: Vital Signs Temp Pulse Resp BP Pulse Ox 09/25/18 07:15 97.7 F 60 18 113/66 95 09/25/18 04:00 98.2 F 59 L 16 124/67 98 09/25/18 02:10 98.3 F 57 L 16 115/68 97 Intake and Output 09/24/18 09/25/18 09/25/18 22:59 06:59 14:59 Other: # Voids 1 Weight 85 kg Results 09/24/18 23:03 09/24/18 23:03 Cardiac Enzymes 09/24/18 09/24/18 09/25/18 Range/Units 23:03 23:03 08:56 AST 27 (17-59) U/L Troponin I <0.012 <0.012 (0.000-0.034) ng/mL Coagulation 09/24/18 09/25/18 Range/Units 23:03 08:56 PT 10.3 (9.0-12.0) sec APTT 24.4 46.4 H (22.0-30.0) sec CBC 09/24/18 Range/Units 23:03 WBC 11.2 H (3.8-10.6) k/uL RBC 4.86 (4.30-5.90) m/uL Hgb 14.5 (13.0-17.5) gm/dL Hct 43.7 (39.0-53.0) % Plt Count 256 (150-450) k/uL Comprehensive Metabolic Panel 09/24/18 Range/Units 23:03 Sodium 138 (137-145) mmol/L Potassium 4.2 (3.5-5.1) mmol/L Chloride 106 (98-107) mmol/L Carbon Dioxide 23 (22-30) mmol/L BUN 21 H (9-20) mg/dL Creatinine 0.72 (0.66-1.25) mg/dL Glucose 172 H (74-99) mg/dL Calcium 9.3 (8.4-10.2) mg/dL AST 27 (17-59) U/L ALT 32 (21-72) U/L Alkaline Phosphatase 93 (38-126) U/L Total Protein 6.9 (6.3-8.2) g/dL Albumin 4.0 (3.5-5.0) g/dL Current Medications Generic Name Dose Route Start Last Admin Trade Name Freq PRN Reason Stop Dose Admin Atorvastatin Calcium 80 mg 09/25/18 21:00 Lipitor PO HS HIMA Heparin Sodium (Porcine) 0 unit 09/24/18 23:30 Heparin IV PER PROTOCOL PRN Low PTT Protocol Heparin Sodium/Sodium Chloride 250 mls @ 10.2 mls/hr 09/24/18 23:30 09/24/18 23:45 25,000 unit/ Sodium Chloride IV 12 units/kg/hr .Q24H HIMA 10.2 mls/hr Administration Protocol 12 UNITS/KG/HR Insulin Aspart 20 unit 09/25/18 12:30 Novolog SQ AC-TID HIMA Insulin Aspart 0 unit 09/25/18 12:30 Novolog SQ ACHS HIMA Protocol Insulin Detemir 50 unit 09/25/18 21:00 Levemir SQ HS HIMA Lisinopril 10 mg 09/25/18 09:00 09/25/18 10:19 Zestril PO 10 mg DAILY HIMA Administration Morphine Sulfate 2 mg 09/25/18 03:35 Morphine Sulfate (Inj) IVP Q4H PRN CHEST PAIN Nitroglycerin 0.4 mg 09/25/18 04:54 Nitrostat SUBLINGUAL DIRECTED PRN CHEST PAIN Nitroglycerin 0.5 inch 09/25/18 09:02 09/25/18 10:19 Nitro-Bid Oint TOPICAL 0.5 inch Q6HR HIMA Administration Ondansetron HCl 4 mg 09/25/18 03:35 Zofran IVP Q8H PRN Nausea Intake and Output 09/24/18 09/25/18 09/25/18 22:59 06:59 14:59 Other: # Voids 1 Weight 85 kg 09/24/18 23:03 09/24/18 23:03
--- NOTE | 2018-09-25 11:24 | XR ---
EXAMINATION TYPE: XR chest 2V DATE OF EXAM: 09/25/2018 COMPARISON: 06/24/2014 HISTORY: Chest pain TECHNIQUE: Frontal and lateral views of the chest are obtained. FINDINGS: There is no focal air space opacity, pleural effusion, or pneumothorax seen. The cardiac silhouette size is within normal limits. The osseous structures are intact. Minimal degenerative ch anges of the thoracic spine are noted. IMPRESSION: No acute cardiopulmonary process.
[2018-09-25 11:51] LABS: Glucose,Whole Blood 146 mg/dL (75-99)
[2018-09-25 12:13] VITALS: BP 133/72; PULSE 66; TEMP 97.5
[2018-09-25 12:20] LABS: Cholesterol 157 mg/dL (<200); HDL Cholesterol 41 mg/dL (40-60); LDL Cholesterol,Calculated 83 mg/dL (0-99); Triglycerides 167 mg/dL (<150)
--- NOTE | 2018-09-25 12:20 | ECHOF ---
Referral Reason:cp MEASUREMENTS -------- HEIGHT: 170.2 cm WEIGHT: 84.8 kg BP: RVIDd: 2.4 cm (< 3.3) IVSd: 1.0 cm (0.6 - 1.1) LVIDd: 4.4 cm (3.9 - 5.3) LVPWd: 1.3 cm (0.6 - 1.1) IVSs: 1.5 cm LVIDs: 3.2 cm LVPWs: 1.9 cm LAESV Index (A-L): 11.69 ml/m Ao Diam: 3.1 cm (2.0 - 3.7) AV Cusp: 1.8 cm (1.5 - 2.6) LA Diam: 3.1 cm (2.7 - 3.8) MV EXCURSION: 20.477 mm (> 18.000) MV EF SLOPE: 95 mm/s (70 - 150) EPSS: 0.8 cm MV E Jovan: 0.90 m/s MV DecT: 231 ms MV A Jovan: 0.77 m/s MV E/A Ratio: 1.17 RAP: 5.00 mmHg RVSP: 9.06 mmHg FINDINGS -------- Sinus rhythm. This was a technically good study. The left ventricular size is normal. There is mild concentric left ventricular hypertrophy. Overa ll left ventricular systolic function is normal with, an EF between 55 - 60 %. The right ventricle is normal in size. Normal LA size by volume 22+/-6 ml/m2. The right atrial size is normal. Interatrial and interventricular septum intact. The aortic valve is trileaflet and appears structurally normal. The mitral valve is normal. There is trace mitral regurgitation. Trace tricuspid regurgitation present. There is no evidence of pulmonary hypertension. There is no pulmonic regurgitation present. The aortic root size is normal. IVC Not well visulized. There is no pericardial effusion. CONCLUSIONS -------- 1. Sinus rhythm. 2. This was a technically good study. 3. The left ventricular size is normal. 4. There is mild concentric left ventricular hypertrophy. 5. Overall left ventricular systolic function is normal with, an EF between 55 - 60 %. 6. The right ventricle is normal in size. 7. Normal LA size by volume 22+/-6 ml/m2. 8. The right atrial size is normal. 9. Interatrial and interventricular septum intact. 10. The aortic valve is trileaflet and appears structurally normal. 11. The mitral valve is normal. 12. There is trace mitral regurgitation. 13. Trace tricuspid regurgitation present. 14. There is no evidence of pulmonary hypertension. 15. There is no pulmonic regurgitation present. 16. The aortic root size is normal. 17. IVC Not well visulized. 18. There is no pericardial effusion. MANAGER TAX: Tracee Shelley RDCS
[2018-09-25] MEDS ORDERED: INSULIN ASPART (NovoLOG) 100 UNIT/ML VIAL SQ SCH ×2 (12:30)
--- NOTE | 2018-09-25 13:16 | ECHOS ---
STRESS ECHOCARDIOGRAM DATE OF SERVICE: 09/25/2018 INDICATIONS: Chest pain. MEDICATIONS: BASELINE HEART RATE: 61 BASELINE BLOOD PRESSURE: 106/59 MAXIMUM HEART RATE: 153 MAXIMUM BLOOD PRESSURE: 199/64 85% MPHR: 147 100% MPHR: 173 METS: 9.3 MAXIMUM STAGE REACHED: III TOTAL EXERCISE TIME: 7 minutes 45 seconds CLINICAL INFORMATION: Patient was exercised for a total period of 7 minutes and 45 seconds. Peak heart rate of 153 was achieved. Maximum blood pressure 199/64 mmHg was noted. The resting EKG shows normal sinus rhythm with normal MN interval and QRS duration and normal ST-T waves. No ST-segment depression suggestive of ischemia is noted. The baseline echocardiographic images reveal normal left ventricular chamber size with normal left ventricular systolic function. In the immediate postexercise period, normal increase in the wall thickness and contractility is noted. FINAL IMPRESSION: This stress echocardiographic study is negative for stress-induced ischemia. EKG portion of the stress test is not suggestive of ischemia. Patient's exercise tolerance is normal. MMODL / IJN: [id number] /
--- NOTE | 2018-09-25 13:35 | P.HPIM ---
History of Present Illness 49-year-old male came in with comments of pressure-like chest pain which started yesterday precordial chest pain pressure-like sensation 8/ 10 in severity reviewed by nitroglycerin now about 3/10 in severity and lasted for a few hours. Patient denied any history of coronary artery disease. Patient had a Lexiscan stress test in March 2018 which was negative for inducible ischemia. Patient the chest pain is associated lightheadedness and some nausea denied and diaphoresis patient's chest pain doesn't increase with deep breathing was comparing of mild shortness of breath associated with the chest pain no nausea associated with that nitroglycerin helped his chest pain. EKG showed normal sinus rhythm without any acute ST-T wave changes. Review of Systems REVIEW OF SYSTEMS: CONSTITUTIONAL: No fever, no malaise, no fatigue. HEENT: No recent visual problems or hearing problems. Denied any sore throat. CARDIOVASCULAR: No orthopnea, PND, no palpitations, no syncope. PULMONARY: No shortness of breath, no cough, no hemoptysis. GASTROINTESTINAL: No diarrhea, no nausea, no vomiting, no abdominal pain. NEUROLOGICAL: No headaches, no weakness, no numbness. HEMATOLOGICAL: Denies any bleeding or petechiae. GENITOURINARY: Denies any burning micturition, frequency, or urgency. MUSCULOSKELETAL/RHEUMATOLOGICAL: Denies any joint pain, swelling, or any muscle pain. ENDOCRINE: Denies any polyuria or polydipsia. The rest of the 14-point review of systems is negative. Past Medical History Past Medical History: Asthma, Diabetes Mellitus, Hyperlipidemia, Hypertension, Neurologic Disorder Additional Past Medical History / Comment(s): migraine headaches, lumbar compression deformities, sciatica History of Any Multi-Drug Resistant Organisms: MRSA Date of last positivie culture/infection: 08/23/17 MDRO Source:: thigh Past Surgical History: Heart Catheterization, Hernia Repair Past Anesthesia/Blood Transfusion Reactions: No Reported Reaction Past Psychological History: No Psychological Hx Reported Smoking Status: Never smoker Past Alcohol Use History: None Reported Past Drug Use History: None Reported - Past Family History Father Family Medical History: Deep Vein Thrombosis (DVT) Medications and Allergies Home Medications Medication Instructions Recorded Confirmed Type INSULIN ASPART (NovoLOG) [NovoLOG] 20 unit SQ AC-TID 09/07/15 09/25/18 History Insulin Glargine [Lantus] 70 unit SQ HS 09/07/15 09/25/18 History Lisinopril [Zestril] 10 mg PO DAILY 12/25/16 09/25/18 History metFORMIN HCL [Glucophage] 2,000 mg PO QAM 12/25/16 09/25/18 History Rosuvastatin Calcium [Crestor] 40 mg PO HS 07/01/18 09/25/18 History Naproxen Sodium [Aleve] 220 mg PO DAILY PRN 09/25/18 09/25/18 History Allergies Allergy/AdvReac Type Severity Reaction Status Date / Time sumatriptan [From Imitrex] Allergy Rash/Hives Verified 09/25/18 07:03 sumatriptan succinate Allergy Rash/Hives Verified 09/25/18 07:03 [From Imitrex] tramadol AdvReac Itching Verified 09/25/18 07:03 Physical Exam Vitals: Vital Signs Temp Pulse Resp BP Pulse Ox 09/25/18 12:00 97.5 F L 66 18 133/72 98 09/25/18 07:15 97.7 F 60 18 113/66 95 09/25/18 04:00 98.2 F 59 L 16 124/67 98 09/25/18 02:10 98.3 F 57 L 16 115/68 97 Intake and Output 09/24/18 09/25/18 09/25/18 22:59 06:59 14:59 Other: # Voids 1 1 Weight 85 kg PHYSICAL EXAMINATION: GENERAL: The patient is alert and oriented x3, not in any acute distress. Well developed, well nourished. HEENT: Pupils are round and equally reacting to light. EOMI. No scleral icterus. No conjunctival pallor. Normocephalic, atraumatic. No pharyngeal erythema. No thyromegaly. CARDIOVASCULAR: S1 and S2 present. No murmurs, rubs, or gallops. PULMONARY: Chest is clear to auscultation, no wheezing or crackles. ABDOMEN: Soft, nontender, nondistended, normoactive bowel sounds. No palpable or ganomegaly. MUSCULOSKELETAL: No joint swelling or deformity. EXTREMITIES: No cyanosis, clubbing, or pedal edema. NEUROLOGICAL: Gross neurological examination did not reveal any focal deficits. SKIN: No rashes. Results CBC & Chem 7: 09/24/18 23:03 09/24/18 23:03 Labs: Abnormal Lab Results - Last 24 Hours (Table) 09/24/18 09/24/18 09/25/18 Range/Units 23:03 23:03 08:21 WBC 11.2 H (3.8-10.6) k/uL APTT (22.0-30.0) sec BUN 21 H (9-20) mg/dL Glucose 172 H (74-99) mg/dL POC Glucose (mg/dL) 189 H (75-99) mg/dL Triglycerides (<150) mg/dL 09/25/18 09/25/18 09/25/18 Range/Units 08:56 08:56 11:41 WBC (3.8-10.6) k/uL APTT 46.4 H (22.0-30.0) sec BUN (9-20) mg/dL Glucose (74-99) mg/dL POC Glucose (mg/dL) 146 H (75-99) mg/dL Triglycerides 167 H (<150) mg/dL Assessment and Plan Plan: Chest pain: Patient will be evaluated by cardiology patient admitted for possible unstable angina. Patient will undergo stress test today. -Diabetes mellitus patient will be resumed on his home regimen except for metformin along with sliding scale insulin titration depending on his blood sugars he -Hyperlipidemia -Hypertension -Asthma without any acute exacerbation
--- NOTE | 2018-09-25 15:10 | P.DS ---
Providers Date of admission: 09/25/18 00:40 Attending physician: Matteo Teague Consults: 09/25/18 05:32 Consult Physician Routine Consulting Provider: Eryn Zambrano Consult Reason/Comments: Chest pain Do you want consulting provider notified?: Yes, Notify in am Placement Type Exists?: Yes Primary care physician: [facility] Course: Patient's a stress test, which is is negative. Unsure of the exact etiology of his chest pain. Patient will be discharged today please refer to my dictation of H&P for further details Plan - Discharge Summary New Discharge Prescriptions: Continue Insulin Glargine [Lantus] 70 unit SQ HS INSULIN ASPART (NovoLOG) [NovoLOG (formulary)] 20 unit SQ AC-TID metFORMIN HCL [Glucophage] 2,000 mg PO QAM Lisinopril [Zestril] 10 mg PO DAILY Rosuvastatin Calcium [Crestor] 40 mg PO HS Naproxen Sodium [Aleve] 220 mg PO DAILY PRN PRN Reason: Pain Discharge Medication List INSULIN ASPART (NovoLOG) [NovoLOG (formulary)] 20 unit SQ AC-TID 09/07/15 [History] Insulin Glargine [Lantus] 70 unit SQ HS 09/07/15 [History] Lisinopril [Zestril] 10 mg PO DAILY 12/25/16 [History] metFORMIN HCL [Glucophage] 2,000 mg PO QAM 12/25/16 [History] Rosuvastatin Calcium [Crestor] 40 mg PO HS 07/01/18 [History] Naproxen Sodium [Aleve] 220 mg PO DAILY PRN 09/25/18 [History] Follow up Appointment(s)/Referral(s): Ruby Houston MD [STAFF PHYSICIAN] - 1 Week Discharge Disposition: HOME SELF-CARE
[2018-09-25] MEDS ORDERED: ATORVASTATIN 80 MG TAB PO SCH (21:00)
[2018-09-25] MEDS ORDERED: INSULIN DETEMIR (LEVEMIR) 100 UNIT/ML SYR SQ SCH (21:00)
== END 2018-09-25 15:55 | disposition home or self-care (01) ==
LOC: EC 22:35 → UNDOADMOB 09-25 00:40 → 1SOBS 09-25 00:40 → UNDODISOB 09-25 15:55
PROVIDERS: ADMIT Hospitalist; ATTEND Hospitalist
DX: R07.9 Chest pain, unspecified (principal); R06.02 Shortness of breath; R42 Dizziness and giddiness; Z88.6 Allergy status to analgesic agent; Z88.8 Allergy status to other drugs, medicaments and biological substances; Z95.818 Presence of other cardiac implants and grafts
CPT/HCPCS: 93306; 93351; 85379; 83880; 80061; 80053; 83735; 84484; 85025; 85610; 85730; 71046; 99291; 96374; G0378; J2270; Q9950; J1644

== ENCOUNTER → 2019-01-22 | Outpatient (CLI) | payer OTHER ==
--- NOTE | 2019-01-22 12:10 | MR ---
EXAMINATION TYPE: MR shoulder LT wo con DATE OF EXAM: 01/22/2019 COMPARISON: Left shoulder x-rays dated 07/05/2018 HISTORY: Pain in left shoulder TECHNIQUE: Multiplanar, multisequence imaging of the left shoulder is performed without contrast. FINDINGS: Rotator Cuff/Acromioclavicular Joint: There is moderate acromioclavicular arthropathy with capsular h ypertrophy, subchondral cyst formation, slight bone marrow edema, and small marginal osteophytes. The re is mild impression on the myotendinous junction of the supraspinatus such as on coronal image 10 o f the T2 fat-sat sequence and images 11 and 12 of the sagittal T2 fat-sat sequence. There is also a s mall amount of fluid in the subacromial/subdeltoid bursa at this location. There is a low-grade parti al-thickness tear of the insertional fibers of the supraspinatus of the anterior margin measuring 4 m m x 2 mm. A second tear of the anterior fibers is seen measuring 5 mm x 3 mm. Both articular surface tears. Bursal surface fiber fraying is noted with mild to moderate insertional fiber tendinopathy. Mild infraspinatus tendinopathy is also seen with a 3 x 2 mm insertional fiber partial-thickness marcy cular surface tear. Infraspinatus and subscapularis are unremarkable in signal and muscle volume. Glenohumeral Joint: Glenohumeral joint is aligned without significant narrowing. There is slight hete rogeneity of the chondral labral articulation of the glenohumeral joint. Labrum: The inferior labrum appears grossly intact given limitation of non-arthrogram study, however there is what appears as a posterior inferior para labral cyst measuring 6 mm suggestive of a tear. T here also there appears to be a superior labral anterior to posterior tear from approximately 11-1 o' clock. This could be confirmed with MR arthrogram. Biceps Tendon: The long head of biceps is in normal location within bicipital groove. Additionally th ere is attenuation in the intra-articular portion of the long head of the biceps tendon compatible wi th moderate tendinopathy. Bone marrow signal: No focal abnormal marrow signal is appreciated. Other: Few nonenlarged left axillary lymph nodes measure up to 6 mm in short axis, within normal limi ts. IMPRESSION: 1. Moderate acromioclavicular arthropathy with mild internal impingement on the supraspinatus myotend inous junction with small amount of adjacent fluid in the subacromial/subdeltoid bursa that can be se en in bursitis. 2. Low-grade partial-thickness tears of the supraspinatus and infraspinatus as measured above (all 5 mm or smaller) with mild insertional fiber infraspinatus tendinopathy and mild to moderate insertiona l fiber supraspinatus tendinopathy. 3. Moderate tendinopathy of the intra-articular portion of the long head of the biceps tendon. 4. Small paralabral cyst adjacent to the inferior posterior labrum suggestive of tear although tear i s not seen at this location without MR arthrography. Additional small superior to posterior labral te ar is also suspected from 11-1 o'clock.
== END | disposition home or self-care (01) ==
LOC: RADMRIMAIN 10:44
PROVIDERS: ATTEND Nurse Practitioner Acute Care
DX: M75.112 Incomplete rotator cuff tear or rupture of left shoulder, not specified as traumatic (principal); M25.512 Pain in left shoulder

== ENCOUNTER 2019-04-01 08:52 | Day surgery (SDC) | payer OTHER ==
[2019-03-28 17:15] VITALS: BMI 30.2
--- NOTE | 2019-03-31 09:18 | HP ---
HISTORY AND PHYSICAL CHIEF COMPLAINT: Left shoulder pain. 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 He is doing some lifting when he felt a pop in his shoulder. He has had pain ever since. He tried therapy in addition to medications without much relief. He is having significant pain with overhead use and at night. PAST MEDICAL HISTORY: Significant for diabetes, asthma, hypertension, and hyperlipidemia. PAST SURGICAL HISTORY: Significant for inguinal hernia repair in addition to lysis of adhesions. FAMILY HISTORY: Significant for heart disease, cancer, and COPD. SOCIAL HISTORY: Significant for chewing tobacco use. CURRENT MEDICATIONS: 1. Albuterol. 2. Crestor. 3. Insulin. 4. Metformin. 5. Naprosyn. ALLERGIES: He notes allergies to IMITREX and TRAMADOL. REVIEW OF SYSTEMS: Sixteen-point review of systems otherwise reviewed and is noncontributory. PHYSICAL EXAMINATION: On examination, the patient is approximately 5 feet 5 inches, 195 pounds of endomorphic habitus. HEENT exam is nonfocal. Neck is supple. On examination of the left shoulder, active range of motion, forward elevation 150 degrees, external rotation with arm at side 50 degrees, internal rotation to L2. Motor strength is 5 minus over 5 for abduction and external rotation. Impingement test, Neer test, and Speed test are positive. His distal neurovascular exam appears intact in the left upper extremity. X-rays of left shoulder obtained in the office show diminished humeral head to acromial distance. Acromioclavicular joint arthritis is noted. A type 2 acromion is noted. MRI report 01/22/2019 of the left shoulder shows AC joint osteoarthrosis along with high-grade partial-thickness tear of the rotator cuff and significant bicipital tendinosis. IMPRESSION: 1. Left shoulder impingement with partial thickness rotator cuff tear. 2. Left acromioclavicular joint arthritis/bicipital tendinosis. 3. Insulin-dependent diabetes. 4. Chronic obstructive pulmonary disease. RECOMMENDATIONS: I talked to the patient at length regarding his condition along with treatment options. At this point, he is quite symptomatic and opts to proceed with surgery. We will plan to proceed with arthroscopic evaluation with probable subacromial decompression, rotator cuff debridement versus repair, possible biceps tenotomy and distal clavicular resection. We will likely perform that as an outpatient procedure. Risks and benefits were discussed at length in layman's terms. MMODL / IJN: [id number] /
[~2019-04-01 08:52] MED LIST changes: -ACETAMINOPHEN IV (For NPO) 1,000 MG in EMPTY BAG 1 BAG IVPB STA; -BUPIVACAIN-EPI 0.25%-1:200,000 30 ML VIAL SQ ONE; -GLYCOPYRROLATE 0.2 MG/ML 2 ML VIAL ONE; -HEPARIN SODIUM,PORCINE 5,000 UNIT/ML 1 ML VIAL SQ ONE; -HYDROcodone/APAP 5-325MG 1 EACH TAB PO ONE; +HYDROmorphone 0.5 MG/0.5 ML SYRINGE IVP PRN; -IBUPROFEN 200 MG TAB PO ONE; -INSULIN ASPART 100 UNIT/ML 1 ML 10 ML VIAL SQ ONE; -KETAMINE 10 MG/ML 20 ML VIAL ONE; -KETOROLAC 30 MG/ML 1 ML VIAL IVP STA; -MIDAZOLAM (PF) 2 MG/2 ML VIAL IV PRN; +MIDAZOLAM 2 MG/2 ML VIAL IV PRN; -MIDAZOLAM 2 MG/2 ML VIAL ONE; -NEOSTIGMINE 1 MG/ML 10 ML VIAL ONE; -PHENYLEPHRINE-0.9% NACL SYG 1 MG/10 ML SYRINGE ONE; -PROPOFOL 10 MG/ML 20 ML VIAL IV ONE; -ROCURONIUM BROMIDE 10 MG/ML 10 ML VIAL IV ONE; -ROPIVACAINE 5 MG/ML 30 ML VIAL ONE; +SCOPOLAMINE 1.5MG/72HR PATCH TRANSDERM ONE; -SUCCINYLCHOLINE CHLORIDE 100 MG/5 ML SYR IV ONE; -VANCOMYCIN 1,500 MG in SODIUM CHLORIDE 0.9% 250 ML IVPB ONE; -ceFAZolin IN SWFI 2 GM/20 ML SYRINGE IVP ONE; -ePHEDrine SULFATE/0.9% NACL/PF 50 MG/5 ML SYRINGE IV ONE; -fentaNYL (PF) 50 MCG/ML 2 ML AMP IV PRN; -fentaNYL (PF) 50 MCG/ML 2 ML AMP ONE
[2019-04-01 09:19] LABS: Glucose,Whole Blood 175 mg/dL (75-99)
[2019-04-01 09:37] VITALS: TEMP 97
[2019-04-01] MEDS ORDERED: fentaNYL (PF) 50 MCG/ML 2 ML AMP IVP ONE (10:03)
--- NOTE | 2019-04-01 10:25 | P.ANPRN ---
Procedure Note - Anesthesia - Nerve Block Performed Left Interscalene Single Time Out Performed: Yes Date of Procedure: 04/01/19 Procedure Start Time: 09:58 Procedure Stop Time: 10:09 Location of Patient: PreOp Indication: Acute Post-Operative Pain Specifically requested for management of pain by DrDejah: Cameron Mosquera Sedation Type: Sedate with meaningful contact maintained Preparation: Sterile Prep Position: Supine Catheter: None Needle Types: Pajunk Needle Gauge: 21 Ultrasound used to visualize needle placement: Yes Ultrasound used to observe medication spread: Yes Injectate: 0.5% Ropivacaine (see comment for volume) (20cc) Blood Aspirated: No Pain Paresthesia on Injection Noted: No Resistance on Injection: Normal Image Stored and Saved: Yes Events: Uneventful and Well Tolerated
[2019-04-01] MEDS ORDERED: SUCCINYLCHOLINE CHLORIDE 100 MG/5 ML SYR IV ONE (11:16)
[2019-04-01] MEDS ORDERED: GLYCOPYRROLATE 0.2 MG/ML 2 ML VIAL ONE (11:16)
[2019-04-01] MEDS ORDERED: fentaNYL (PF) 50 MCG/ML 2 ML AMP ONE (11:16)
[2019-04-01] MEDS ORDERED: ePHEDrine SULFATE/0.9% NACL/PF 50 MG/5 ML SYRINGE IV ONE (11:16)
[2019-04-01] MEDS ORDERED: LIDOCAINE 1% INJ 10MG/ML (20 ML MDV) ONE (11:16)
[2019-04-01] MEDS ORDERED: PROPOFOL 10 MG/ML 20 ML VIAL IV ONE (11:16)
[2019-04-01] MEDS ORDERED: PHENYLEPHRINE-0.9% NACL SYG 1 MG/10 ML SYRINGE ONE (11:16)
[2019-04-01] MEDS ORDERED: MIDAZOLAM 2 MG/2 ML VIAL ONE (11:16)
[2019-04-01] MEDS ORDERED: EPINEPHrine (PF) 1 ML in SODIUM CHLORIDE 0.9% IRRIGATIO 3,000 ML IRRIGATION ONE ×8 (11:57)
[2019-04-01] MEDS ORDERED: LACTATED RINGERS 1,000 ML IV ONE (12:30)
--- NOTE | 2019-04-01 13:03 | P.OP ---
Date of Procedure: 04/01/19 Preoperative Diagnosis: Symptomatic left rotator cuff tear/impingement Postoperative Diagnosis: 1 1/2 cm supraspinatus/rotator cuff tear, high-grade partial-thickness tear long head of the biceps Procedure(s) Performed: Left shoulder arthroscopic subacromial decompression/distal clavicular resection/rotator cuff repair/biceps tenotomy Implants: Arthrex 4.75 mm swivel lock anchor 1 Anesthesia: KANDACE, regional Surgeon: Cameron Mosquera Forcer Maker #1: Jed Velazquez Estimated Blood Loss (ml): 10 Pathology: none sent Condition: stable Disposition: PACU Indications for Procedure: The patient's a 48-year-old male who presents with progressive left shoulder pain after previous injury despite conservative measures. A discussion of the risks and benefits of operative intervention versus continued conservative measures was made with patient. He opted to proceed with surgery. Operative risks to include infection, neurovascular injury, development of blood clots, possible tendon rerupture, and possible need for subsequent procedures was discussed. Informed consent was obtained. Operative Findings: As below Description of Procedure: The patient was brought to the operating room, and after induction of general anesthesia was placed in a beachchair position. A preoperative interscalene block was placed for postoperative analgesia. I examined the left shoulder. Th ere was no gross block to passive motion or gross glenohumeral instability. The left upper extremity was prepped and draped in normal fashion. The bony outlines the acromion, distal clavicle, and coracoid process were outlined with a skin marker. The glenohumeral joint was inflated with 50 mL of saline utilizing a spinal needle from posterior approach. A posterior portal was made through a 5 mm skin incision 1 cm medial and inferior to the posterior lateral border time. A blunt trocar was used to easily into the joint. Diagnostic arthroscopy was performed. An anterior portal was made just lateral to the coracoid process entering the joint above the subscapularis tendon. The subscapularis tendon appeared to be intact. Anterior labrum was intact. The inferior recess was inspected. The posterior labrum was intact. There was a high-grade partial-thickness tear of the long head of the biceps involving interarticular portion. It was elected to proceed with release at this point. This was released from the superior labrum with electrocautery and was allowed to retract to the bicipital groove. On inspection the rotator cuff, a high- grade partial-thickness tear involving the anterior aspect the supraspinatus was noted. The arthroscope was placed in the subacromial space. A high-grade partial-thickness tear involving the bursal surface of the anterior aspect the supraspinatus was noted. A lateral portal was made 2 centimeters inferior to the anterior lateral border of the acromion. The tear was completed with shaver and easily mobilized back to the greater tuberosity. This was then easily brought back to the greater tuberosity. The soft tissue on the undersurface of the acromion was debrided with a motorized shaver and electrocautery clearly defining the anterior medial and lateral borders as well as the distal clavicle. An anterior inferior acromioplasty was performed with a motorized marielos starting anterolateral, then extending this posteriorly, then extending this medially. I converted to a flat acromion and this was verified in the posterior and lateral viewing portals. The distal 5 mm of the clavicle was resected with a motorized bur. The greater tuberosity was lightly decorticating with a shaver down to a bleeding bony surface. A #2 fiber tape was passed the rotator cuff with a scorpion suture passer. A fiber link was also placed. A lateral anchor was placed utilizing the appropriate starting awl. A 4.75 mm swivel lock anchor was placed with good purchase. The rotator cuff was inspected and felt to be adequately compressed at the footprint. The arthroscope was then removed. The portals were closed with simple 3-0 nylon sutures. A sterile dressing was applied in addition to a sling. The patient was then awoken from general anesthesia and transferred to recovery room in good condition. Blood loss was estimated at 10 mL. No complications were incurred. Sponge and needle counts were correct in the case. Michele STARR assisted and the major components of the case to include arm positioning, anchor placement, and rotator cuff repair.
[2019-04-01 13:07] LABS: Glucose,Whole Blood 253 mg/dL (75-99)
[2019-04-01] MEDS ORDERED: INSULIN ASPART (NovoLOG) 100 UNIT/ML VIAL SQ ONE (13:20)
[2019-04-01 13:48] LABS: Glucose,Whole Blood 250 mg/dL (75-99)
[2019-04-01] MEDS ORDERED: HYDROcodone/APAP 7.5-325MG 1 EACH TAB PO ONE (14:03)
[2019-04-01 14:40] VITALS: RESP 18
[2019-04-01 14:42] VITALS: BP 118/79; PULSE 99
== END 2019-04-01 15:30 | disposition home or self-care (01) ==
LOC: OR 08:52
PROVIDERS: ATTEND Orthopaedic Surgery
DX: S46.012A Strain of muscle(s) and tendon(s) of the rotator cuff of left shoulder, initial encounter (principal); S46.112A Strain of muscle, fascia and tendon of long head of biceps, left arm, initial encounter; X50.9XXA Other and unspecified overexertion or strenuous movements or postures, initial encounter; E11.9 Type 2 diabetes mellitus without complications; I10 Essential (primary) hypertension; E78.5 Hyperlipidemia, unspecified; F17.290 Nicotine dependence, other tobacco product, uncomplicated; G43.909 Migraine, unspecified, not intractable, without status migrainosus; J45.909 Unspecified asthma, uncomplicated; Z82.49 Family history of ischemic heart disease and other diseases of the circulatory system; Z80.9 Family history of malignant neoplasm, unspecified; Z82.5 Family history of asthma and other chronic lower respiratory diseases; Z79.84 Long term (current) use of oral hypoglycemic drugs; Z79.1 Long term (current) use of non-steroidal anti-inflammatories (NSAID); Z79.4 Long term (current) use of insulin; Z79.891 Long term (current) use of opiate analgesic; Z79.899 Other long term (current) drug therapy; Z88.5 Allergy status to narcotic agent; Z88.8 Allergy status to other drugs, medicaments and biological substances
CPT/HCPCS: 64415; 76942; 29826; 29827; 29824; C1713 ×3; C1894; J2250; J1100; J0690; J2405; J0171; J2001; J3010; J2370; J0330; J2704